=== PATIENT | male | born 1970 | race Caucasian/White ===

== ENCOUNTER 2020-02-26 10:17 | Emergency (ER) | payer BC ==
[~2020-02-26] VITALS: Ht 167.6 cm; Wt 64.0 kg
[2020-02-26 10:22] VITALS: BP 148/76
[2020-02-26] MEDS ORDERED: LIDOCAINE-MPF 1%, 5ML ONE (10:37)
[2020-02-26] MEDS ORDERED: LIDOCAINE-MPF 1%, 5ML INFIL ONE (11:00)
[2020-02-26] MEDS ORDERED: NEOSPORIN OINT. PKT 1 PACKET ONE (11:21)
== END 2020-02-26 11:44 ==
LOC: ED 11:38
DX: S61.217A Laceration without foreign body of left little finger without damage to nail, initial encounter (principal); S61.215A Laceration without foreign body of left ring finger without damage to nail, initial encounter; S50.311A Abrasion of right elbow, initial encounter; S60.413A Abrasion of left middle finger, initial encounter; W19.XXXA Unspecified fall, initial encounter; Y93.89 Activity, other specified; Y92.488 Other paved roadways as the place of occurrence of the external cause; Y99.8 Other external cause status
CPT/HCPCS: 12042; 99284; 99285